=== PATIENT | male | born 1980 | race American Indian/Alaskan Native ===

== ENCOUNTER 2020-06-25 18:41 | Emergency (ER) | payer SELFPAY ==
--- NOTE | 2020-06-25 19:29 | Emergency Department Report ---
Blank Doc - Documentation Documentation: 39-year-old male that presents with abdominal pain with n/v. This initial assessment/diagnostic orders/clinical plan/treatment(s) is/are subject to change based on patient's health status, clinical progression and re- assessment by fellow clinical providers in the ED. Further treatment and workup at subsequent clinical providers discretion. Patient/guardians urged not to elope from the ED as their condition may be serious if not clinically assessed and managed. Initial orders include: 1- Patient sent to [facility] for further evaluation and treatment 2- labs 3- UA
[2020-06-25 19:38] VITALS: BP 139/96
[2020-06-25 20:22] LABS: Hematocrit 44.2 % (35.5-45.6); Hemoglobin 15.6 gm/dl (11.8-15.2); Mean Corpuscular HGB Conc 35 % (32-34); Mean Corpuscular Volume 91 fl (84-94); Platelet Count 230 K/mm3 (140-440); Red Blood Count 4.84 M/mm3 (3.65-5.03); Red Cell Distribution Width 13.7 % (13.2-15.2)
[2020-06-25 20:53] LABS: Alanine Aminotransferase 23 units/L (7-56); Albumin 4.4 g/dL (3.9-5); BUN/Creatinine Ratio 11; Blood Urea Nitrogen 13 mg/dL (9-20); Calcium 9.9 mg/dL (8.4-10.2); Hemolysis Index 218
== END 2020-06-26 00:01 | disposition left against medical advice (07) ==
LOC: ED 18:41
DX: R10.9 Unspecified abdominal pain (principal); Z53.21 Procedure and treatment not carried out due to patient leaving prior to being seen by health care provider
CPT/HCPCS: 36415; 80053; 83690; 85025

== ENCOUNTER 2020-06-26 11:00 | Emergency (ER) | payer SELFPAY ==
--- NOTE | 2020-06-26 13:30 | Event Note ---
ED Screening Note Date of service: 06/26/20 Time: 13:28 ED Screening Note: 39 y o male with heavy ETOH use cc of LUQ pain x months and got worse yesterday This initial assessment/diagnostic orders/clinical plan/treatment(s) is/are subject to change based on patients health status, clinical progression and re- assessment by fellow clinical providers in the ED. Further treatment and workup at subsequent clinical providers discretion. Patient/guardian urged not to elope from the ED as their condition may be serious if not clinically assessed and managed. Initial orders include: basic labs ua US abd?
[2020-06-26 14:07] LABS: Basophils % (Auto) 0.4 % (0.0-1.8); Eosinophils # (Auto) 0.1 K/mm3 (0.0-0.4); Eosinophils % (Auto) 1.2 % (0.0-4.3); Hematocrit 44.9 % (35.5-45.6); Hemoglobin 15.8 gm/dl (11.8-15.2); Lymphocytes # (Auto) 2.3 K/mm3 (1.2-5.4); Lymphocytes % (Auto) 31.7 % (13.4-35.0); Mean Corpuscular HGB Conc 35 % (32-34); Mean Corpuscular Volume 91 fl (84-94); Monocytes # (Auto) 0.7 K/mm3 (0.0-0.8); Monocytes % (Auto) 9.8 % (0.0-7.3); Platelet Count 249 K/mm3 (140-440); Red Blood Count 4.94 M/mm3 (3.65-5.03); Red Cell Distribution Width 13.8 % (13.2-15.2)
[2020-06-26 14:34] LABS: Alanine Aminotransferase 17 units/L (7-56); Albumin 4.4 g/dL (3.9-5); BUN/Creatinine Ratio 12; Blood Urea Nitrogen 14 mg/dL (9-20); Calcium 9.7 mg/dL (8.4-10.2); Hemolysis Index 11
[2020-06-26 15:16] LABS: Bacteria,Urine 1+ /HPF (Negative); Mucus,Urine 2+ /HPF
[2020-06-26 15:36] LABS: Bilirubin,Urine NEG (Negative); Blood,Urine NEG (Negative); Color,Urine Yellow (Yellow); Protein,Urine <15 mg/dL mg/dL (Negative)
[2020-06-26] MEDS ORDERED: LIDOCAINE VISCOUS 2% 15 ML ORAL LIQD PO ONE (18:08)
[2020-06-26] MEDS ORDERED: ALUM-MAG HYDROXIDE-SIMETHICONE 200-200-20MG/5ML ORAL LIQD 30 ML PO ONE (18:08)
[2020-06-26] MEDS ORDERED: LIDOCAINE-MPF (1%) 10 MG/1 ML VIAL 5 ML INFILTRATI ONE (18:10)
[2020-06-26] MEDS ORDERED: PANTOPRAZOLE 40 MG TAB PO ONE (18:10)
--- NOTE | 2020-06-26 18:15 | Emergency Department Report ---
<MELE MORRIS - Last Filed: 07/01/20 16:12> ED General Adult HPI - General Chief complaint: Abdominal Pain Stated complaint: STOMACH PAIN Time Seen by Provider: 06/26/20 18:08 Source: patient Mode of arrival: Ambulatory Limitations: No Limitations - History of Present Illness Initial comments: 39-year-old -[place] male patient presents with complaints of upper abdominal pain x6 months, worsening for the past 2 days after drinking alcohol. Patient states the pain usually occurs with drinking alcohol and denies any previous history of GERD. He admits to intermittent vomiting with drinking alcohol and denies any chest pain, shortness of breath, coughing, fever/chills/sweats, melena/hematochezia, or hematemesis/coffee-ground emesis. Patient states his current pain is mild and rates it as a 3/10 in severity and describes it as a burning type pain that sometimes radiates into his chest. - Related Data Previous Rx's Medication Instructions Recorded Last Taken Type Azithromycin 1,000 mg PO ONCE 1 Days #2 tablet 06/26/20 Unknown Rx Pantoprazole [Protonix TAB] 40 mg PO QAM #20 tablet 06/26/20 Unknown Rx Sucralfate [Carafate] 1 gm PO Q6HR 10 Days #40 tablet 06/26/20 Unknown Rx Allergies Allergy/AdvReac Type Severity Reaction Status Date / Time No Known Allergies Allergy Verified 06/26/20 12:04 ED Past Medical Hx - Surgical History Additional Surgical History: ARM SURGEY - Social History Smoking Status: Never Smoker Substance Use Type: Alcohol - Medications Home Medications: Home Medications Medication Instructions Recorded Confirmed Last Taken Type Azithromycin 1,000 mg PO ONCE 1 Days #2 tablet 06/26/20 Unknown Rx Pantoprazole [Protonix TAB] 40 mg PO QAM #20 tablet 06/26/20 Unknown Rx Sucralfate [Carafate] 1 gm PO Q6HR 10 Days #40 tablet 06/26/20 Unknown Rx ED Physical Exam - General Limitations: No Limitations General appearance: alert, in no apparent distress - Head Head exam: Present: atraumatic, normocephalic - Eye Eye exam: Present: normal appearance. Absent: scleral icterus ED Medical Decision Making - Lab Data Result diagrams: 06/26/20 13:53 06/26/20 13:53 Lab Results 06/26/20 06/26/2020 Range/Units 13:53 13:53 Unknown WBC 7.2 (4.5-11.0) K/mm3 RBC 4.94 (3.65-5.03) M/mm3 Hgb 15.8 H (11.8-15.2) gm/dl Hct 44.9 (35.5-45.6) % MCV 91 (84-94) fl MCH 32 (28-32) pg MCHC 35 H (32-34) % RDW 13.8 (13.2-15.2) % Plt Count 249 (140-440) K/mm3 Lymph % (Auto) 31.7 (13.4-35.0) % [place] % (Auto) 9.8 H (0.0-7.3) % Eos % (Auto) 1.2 (0.0-4.3) % Baso % (Auto) 0.4 (0.0-1.8) % Lymph # (Auto) 2.3 (1.2-5.4) K/mm3 [place] # (Auto) 0.7 (0.0-0.8) K/mm3 Eos # (Auto) 0.1 (0.0-0.4) K/mm3 Baso # (Auto) 0.0 (0.0-0.1) K/mm3 Seg Neutrophils % 56.9 (40.0-70.0) % Seg Neutrophils # 4.1 (1.8-7.7) K/mm3 Sodium 140 (137-145) mmol/L Potassium 4.3 D (3.6-5.0) mmol/L Chloride 100.5 (98-107) mmol/L Carbon Dioxide 28 (22-30) mmol/L Anion Gap 16 mmol/L BUN 14 (9-20) mg/dL Creatinine 1.2 (0.8-1.3) mg/dL Estimated GFR > 60 ml/min BUN/Creatinine Ratio 12 % Glucose 73 L (75-100) mg/dL Calcium 9.7 (8.4-10.2) mg/dL Total Bilirubin 0.40 (0.1-1.2) mg/dL AST 18 (5-40) units/L ALT 17 (7-56) units/L Alkaline Phosphatase 77 (35-129) units/L Total Protein 7.5 (6.3-8.2) g/dL Albumin 4.4 (3.9-5) g/dL Albumin/Globulin Ratio 1.4 % Urine Color Yellow (Yellow) Urine Turbidity Clear (Clear) Urine pH 6.0 (5.0-7.0) Ur Specific [place] 1.031 H (1.003-1.030) Urine Protein <15 mg/dl (Negative) mg/dL Urine Glucose (UA) Neg (Negative) mg/dL Urine Ketones Tr (Negative) mg/dL Urine Blood Neg (Negative) Urine Nitrite Neg (Negative) Ur Reducing Substances Not Reportable Urine Bilirubin Neg (Negative) Urine Ictotest Not Reportable Urine Urobilinogen 2.0 (<2.0) mg/dL Ur Leukocyte Esterase Mod (Negative) Urine WBC (Auto) 52.0 H (0.0-6.0) /HPF Urine RBC (Auto) 7.0 (0.0-6.0) /HPF U Epithel Cells (Auto) 2.0 (0-13.0) /HPF Urine Bacteria (Auto) 1+ (Negative) /HPF Urine Mucus 2+ /HPF - Medical Decision Making 39-year-old -[place] male patient presents with complaints of upper abdominal pain x6 months, worsening for the past 2 days after drinking alcohol. Patient states the pain usually occurs with drinking alcohol and denies any pre vious history of GERD. He admits to intermittent vomiting with drinking alcohol and denies any chest pain, shortness of breath, coughing, fever/chills/sweats, melena/hematochezia, or hematemesis/coffee-ground emesis. Patient states his current pain is mild and rates it as a 3/10 in severity and describes it as a burning type pain that sometimes radiates into his chest. CBC and CMP are normal. No abdominal tenderness is noted on exam. UA shows 52 WBCs. Patient denies any dysuria/hematuria/urinary frequency, however he states his girlfriend is currently symptomatic of STIs and is being evaluated today by her doctor. Patient given empiric STI treatment with Rocephin IM and will DC home with azithromycin. His abdominal pain has improved with medications given here in ED. Advised patient avoid alcohol use and discuss gastritis diet in detail. Patient to follow-up PCP and GI doctor. Protonix prescription given. His vitals are within normal limits, he is well appearing and stable for discharge home peer strict return precautions were discussed in detail with patient who verbalizes understanding. ED Disposition Clinical Impression: Gastritis Qualifiers: Gastritis type: alcoholic Chronicity: chronic Gastritis bleeding: presence of bleeding unspecified Qualified Code(s): K29.20 - Alcoholic gastritis without bleeding Disposition: -01 TO HOME OR SELFCARE Is pt being admited?: No Condition: Stable Instructions: Gastritis (ED), Diet for Ulcers and Gastritis (ED) Prescriptions: Azithromycin 1,000 mg PO ONCE 1 Days #2 tablet Sucralfate [Carafate] 1 gm PO Q6HR 10 Days #40 tablet Pantoprazole [Protonix TAB] 40 mg PO QAM #20 tablet Referrals: KATE BANUELOS MD [Staff Physician] - 3-5 Days (Gastritis ) [facility] [Provider Group] - 3-5 Days (Gastritis ) Forms: Work/School Release Form(ED) <TUNDE PARISI - Last Filed: 07/01/20 17:41> ED Review of Systems ROS: Stated complaint: STOMACH PAIN Other details as noted in HPI ED Course Vital Signs 06/26/20 06/26/20 06/26/20 12:06 18:47 18:48 Temperature 97.8 F 98.0 F Pulse Rate 52 L Respiratory 20 18 14 Rate Blood Pressure 135/84 172/103 O2 Sat by Pulse 98 Oximetry 06/26/20 18:50 Temperature Pulse Rate 48 L Respiratory 14 Rate Blood Pressure O2 Sat by Pulse 100 Oximetry ED Medical Decision Making - Lab Data Result diagrams: 06/26/20 13:53 06/26/20 13:53 - Medical Decision Making Chart available to be reviewed by me on July 01 after it was signed by FERNANDO. Patient was seen on June 26 and subsequently discharged. I would have preferred a lipase prior to discharge to rule out pancreatitis given patient's history of EtOH abuse. He however, does not have elevated LFTs, white count, or persistent vomiting as indicated by medical record and had improved symptoms with ED treatment. Critical care attestation.: If time is entered above; I have spent that time in minutes in the direct care of this critically ill patient, excluding procedure time. ED Disposition Is pt being admited?: No
[2020-06-26 18:50] VITALS: BP 172/103
== END 2020-06-26 19:02 | disposition home or self-care (01) ==
LOC: ED 11:00
DX: K29.70 Gastritis, unspecified, without bleeding (principal); Z79.899 Other long term (current) drug therapy; Z98.890 Other specified postprocedural states
CPT/HCPCS: 36415; 80053; 81001; 85025; 87086; 96372; 99283; J0696